=== PATIENT | male | born 1935 | race Caucasian/White ===

== ENCOUNTER → 2021-02-14 | Outpatient (CLI) | payer MEDICARE ==
[~2021-02-14] MED LIST: ACET-1600 PO; DOCU-131 PO; FENO145T32 PO; FLUT9.9S NAS; GABA100C PO; GUAI100L11 PO; LANS30CA PO; LIDO1ADH68 TP; MAGN400T9 PO; MELA3TAB31 PO; METO25TA35 PO; OXYC-302 PO; TRAZ50TA66 PO
== END | disposition home or self-care (01) ==
LOC: STAR 12:56
PROVIDERS: ATTEND Internal Medicine Gastroenterology
DX: Z01.818 Encounter for other preprocedural examination (principal); K21.9 Gastro-esophageal reflux disease without esophagitis; R63.4 Abnormal weight loss; I25.2 Old myocardial infarction; I49.3 Ventricular premature depolarization; I45.3 Trifascicular block; I45.2 Bifascicular block; I44.0 Atrioventricular block, first degree; Z20.822 Contact with and (suspected) exposure to COVID-19
CPT/HCPCS: 93005; U0003; U0005

== ENCOUNTER 2021-02-22 11:23 | Day surgery (SDC) | payer MEDICARE ==
[~2021-02-22] VITALS: Ht 177.8 cm; Wt 60.4 kg
[2021-02-22 12:52] VITALS: BP 111/77
[2021-02-22] MEDS ORDERED: LACTATED RINGERS 1,000 ML IV SCH (13:00)
[2021-02-22] MEDS ORDERED: CHLORHEXIDINE 15 ML UDC PO ONE (13:00)
[2021-02-22] MEDS ORDERED: PROPOFOL 50 ML ONE (13:40)
[2021-02-22] MEDS ORDERED: OXYcodone 5 MG/5 ML ORAL.SOL UDC PO PRN (14:30)
[2021-02-22] MEDS ORDERED: ONDANSETRON 2MG/ML, 2ML IVPush PRN (14:30)
[2021-02-22] MEDS ORDERED: PROMETHAZINE 25 MG/ML, 1ML IVPush PRN (14:30)
[2021-02-22] MEDS ORDERED: ACETAMINOPHEN 325 MG TABLET PO PRN (14:30)
== END 2021-02-22 15:21 | disposition home or self-care (01) ==
LOC: OUT 11:23
PROVIDERS: ATTEND Internal Medicine Gastroenterology
DX: R63.4 Abnormal weight loss (principal); K44.9 Diaphragmatic hernia without obstruction or gangrene; K57.10 Diverticulosis of small intestine without perforation or abscess without bleeding; K21.9 Gastro-esophageal reflux disease without esophagitis; I10 Essential (primary) hypertension; E78.00 Pure hypercholesterolemia, unspecified; Z88.8 Allergy status to other drugs, medicaments and biological substances; Z88.1 Allergy status to other antibiotic agents; Z90.49 Acquired absence of other specified parts of digestive tract; Z98.890 Other specified postprocedural states; Z79.899 Other long term (current) drug therapy; Z79.1 Long term (current) use of non-steroidal anti-inflammatories (NSAID); Z87.891 Personal history of nicotine dependence
CPT/HCPCS: 43235; J2704; J7120

== ENCOUNTER → 2021-03-15 | Outpatient (CLI) | payer MEDICARE ==
[~2021-03-15] MED LIST changes: +CETI10TA76 PO; +HYDR25SU4 RC; +ONDA4TAB13 SL; +ROPI0.5T4 PO; +TIZA-106 PO
== END | disposition home or self-care (01) ==
LOC: STAR 10:32
PROVIDERS: ATTEND Surgery
DX: Z20.822 Contact with and (suspected) exposure to COVID-19 (principal); K40.90 Unilateral inguinal hernia, without obstruction or gangrene, not specified as recurrent
CPT/HCPCS: U0003; U0005

== ENCOUNTER 2021-03-19 10:03 | Day surgery (SDC) | payer MEDICARE ==
[~2021-03-19] VITALS: Ht 177.8 cm; Wt 60.2 kg
[2021-03-19 10:33] VITALS: BP 123/84
[2021-03-19] MEDS ORDERED: CHLORHEXIDINE 15 ML UDC PO ONE (11:00)
[2021-03-19] MEDS ORDERED: LACTATED RINGERS 1,000 ML IV SCH (11:00)
[2021-03-19] MEDS ORDERED: BUPIVACAINE/PF 0.5% ONE (12:20)
[2021-03-19] MEDS ORDERED: EPINEPHRINE 1 MG/ML, 1ML ONE (12:20)
[2021-03-19] MEDS ORDERED: FENTANYL PF 100 MCG/2ML ONE ×3 (12:22→13:53)
[2021-03-19] MEDS ORDERED: DIPHENHYDRAMINE 50 MG/ML, 1ML IVPush PRN (12:30)
[2021-03-19] MEDS ORDERED: ACETAMINOPHEN 325 MG TABLET PO PRN (12:30)
[2021-03-19] MEDS ORDERED: LABETALOL 5MG/ML, 20ML IV PRN (12:30)
[2021-03-19] MEDS ORDERED: hydrALAzine 20 MG/ML, 1ML IV PRN (12:30)
[2021-03-19] MEDS ORDERED: HALOPERIDOL 5 MG/ML IV PRN (12:30)
[2021-03-19] MEDS ORDERED: MEPERIDINE/PF 25MG/0.5ML IVPush PRN (12:30)
[2021-03-19] MEDS ORDERED: OXYcodone 5 MG/5 ML ORAL.SOL UDC PO PRN (12:30)
[2021-03-19] MEDS ORDERED: PROMETHAZINE 25 MG/ML, 1ML IVPush PRN (12:30)
[2021-03-19] MEDS ORDERED: CLINDAMYCIN 150 MG/ML, 6ML ONE (12:33)
[2021-03-19] MEDS ORDERED: ESMOLOL 100 MG/10 ML ONE (13:09)
[2021-03-19] MEDS ORDERED: ROCURONIUM 10MG/ML,5ML ONE (13:38)
[2021-03-19] MEDS ORDERED: CEFAZOLIN 1,000 MG ONE (13:38)
[2021-03-19] MEDS ORDERED: ONDANSETRON 2MG/ML, 2ML ONE (13:38)
[2021-03-19] MEDS ORDERED: GLYCOPYRROLATE 0.2MG/1ML, 5ML ONE (13:38)
[2021-03-19] MEDS ORDERED: SUCCINYLCHOLINE 20 MG/ML, 10ML ONE (13:38)
[2021-03-19] MEDS ORDERED: DEXAMETHASONE 4 MG/ML, 1ML ONE (13:38)
[2021-03-19] MEDS ORDERED: NEOSTIGMINE 1 MG/ML, 10ML ONE (13:38)
[2021-03-19] MEDS ORDERED: PROPOFOL 10 MG/ML, 20ML ONE (13:38)
[2021-03-19] MEDS ORDERED: OXYcodone 5 MG/5 ML ORAL.SOL UDC ONE (13:53)
[2021-03-19] MEDS ORDERED: HYDROmorphone 1 MG/ML, 1ML INJ ONE (13:53)
[2021-03-19] MEDS: FENTANYL PF 100 MCG/2ML IV PRN ×2 (13:55→14:01)
[2021-03-19] MEDS: HYDROmorphone 1 MG/ML, 1ML INJ IVPush PRN ×2 (14:09→14:17)
[2021-03-19] MEDS ORDERED: MEPERIDINE/PF 25MG/ML,1ML ONE (14:22)
== END 2021-03-19 18:30 | disposition home or self-care (01) ==
LOC: OUT 10:03
PROVIDERS: ATTEND Surgery
DX: K40.90 Unilateral inguinal hernia, without obstruction or gangrene, not specified as recurrent (principal); K21.9 Gastro-esophageal reflux disease without esophagitis; Z87.891 Personal history of nicotine dependence; Z88.8 Allergy status to other drugs, medicaments and biological substances
CPT/HCPCS: 49650; C1781; J0171; J0330; J1100; J1170; J2175; J2405; J2704; J2710; J3010; J7120; J0690